=== PATIENT | male | born 1965 | race Caucasian/White ===

== ENCOUNTER 2018-11-28 09:49 | Day surgery (SDC) | payer BC ==
[2018-11-26 14:11] VITALS: BMI 36.2
--- NOTE | 2018-11-28 08:47 | P.GSHP ---
History of Present Illness H&P Date: 11/28/18 CHIEF COMPLAINT: Colon screen HISTORY OF PRESENT ILLNESS: The patient is a 53-year-old male who presents for colon screen. Lower endoscopy was offered for further evaluation and management. PAST MEDICAL HISTORY: Please see list. PAST SURGICAL HISTORY: Please see list. MEDICATIONS: Please see list. ALLERGIES: Please see list. SOCIAL HISTORY: No illicit drug use FAMILY HISTORY: No reports of Crohn disease or ulcerative colitis. REVIEW OF ORGAN SYSTEMS: CONSTITUTIONAL: No reports of fevers or chills. PHYSICAL EXAM: VITAL SIGNS: Stable GENERAL: Well-developed pleasant in no acute distress. HEENT: No scleral icterus. Extraocular movements grossly intact. Moist buccal mucosa. NECK: Supple without lymphadenopathy. CHEST: Unlabored respirations. Equal bilateral excursions. CARDIOVASCULAR: Regular rate and rhythm. Distal 2+ pulses. ABDOMEN: Soft, nontender, nondistended. MUSCULOSKELETAL: No clubbing, cyanosis, or edema. ASSESSMENT: 1. Colon screen. PLAN: 1. 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 Last Myocardial Infarction Date:: 04/06/16 History of Any Multi-Drug Resistant Organisms: None Reported Past Surgical History: Heart Catheterization, Heart Catheterization With Stent, Tonsillectomy Additional Past Surgical History / Comment(s): TWO STENTS Past Anesthesia/Blood Transfusion Reactions: No Reported Reaction Date of Last Stent Placement:: 04/06/16 Past Psychological History: Anxiety Additional Psychological History / Comment(s): PTS STATES " NOT REALLY ANGRY- JUST LOUD" Smoking Status: Former smoker Past Alcohol Use History: Occasional Additional Past Alcohol Use History / Comment(s): QUIT 04/06/16 WAS 2 PPD FOR 35 YRS . CURRENTLY VAPES* Past Drug Use History: Marijuana Additional Drug Use History / Comment(s): CURRENT MARIJUANA USE - Past Family History Father Family Medical History: Coronary Artery Disease (CAD) Additional Family Medical History / Comment(s): CABG- TRIPLE WITH VALVE REPLACEMENT 1974 FOLLOWING YEAR FROM HEART PROBLEMS Mother Family Medical History: Osteoarthritis (OA) Additional Family Medical History / Comment(s): chronic pain, cystic breast tissue removed Brother(s) Family Medical History: Hyperlipidemia Sister(s) Family Medical History: Hyperlipidemia Daughter(s) Family Medical History: No Reported History Son(s) Family Medical History: No Reported History Medications and Allergies Home Medications Medication Instructions Recorded Confirmed Type Multivitamins, Thera [Multivitamin 1 tab PO DAILY 04/06/16 11/26/18 History (formulary)] busPIRone HCl [Buspar] 20 mg PO BID 04/06/16 11/26/18 History Aspirin 325 mg PO DAILY tab 04/09/16 11/26/18 Rx Nitroglycerin Sl Tabs [Nitrostat] 0.4 mg SUBLINGUAL Q5M PRN #30 tab 04/09/16 11/26/18 Rx Acetaminophen [Tylenol] 1,500 mg PO BID PRN 11/26/18 11/26/18 History Losartan Potassium [Cozaar] 100 mg PO DAILY 11/26/18 11/26/18 History Metoprolol Tartrate [Lopressor] 50 mg PO BID 11/26/18 11/26/18 History Naproxen Sodium [Aleve] 440 mg PO BID 11/26/18 11/26/18 History Omeprazole [PriLOSEC] 40 mg PO DAILY 11/26/18 11/26/18 History Ranitidine HCl 150 mg PO DAILY 11/26/18 11/26/18 History Simvastatin [Zocor] 40 mg PO HS 11/26/18 11/26/18 History Vitamin B Complex 1 each PO DAILY 11/26/18 11/26/18 History amLODIPine BESYLATE [Norvasc] 5 mg PO HS PRN 11/26/18 11/26/18 History Allergies Allergy/AdvReac Type Severity Reaction Status Date / Time No Known Allergies Allergy Verified 11/26/18 13:34
[~2018-11-28 09:49] MED LIST: HYDROmorphone 0.5 MG/0.5 ML SYRINGE IVP PRN; LACTATED RINGERS 1,000 ML IV SCH; LIDOCAINE 1% 20 ML VIAL (10MG/ML) FOR IV START INTRADERMA PRN; MIDAZOLAM 2 MG/2 ML VIAL IV PRN
[2018-11-28 10:41] VITALS: RESP 18; TEMP 98.7
[2018-11-28] MEDS ORDERED: PROPOFOL 10 MG/ML 20 ML VIAL IV ONE (11:28)
--- NOTE | 2018-11-28 12:21 | P.PCN ---
Date of Procedure: 11/28/18 Description of Procedure: PREOPERATIVE DIAGNOSIS: Colonoscopy screening, first POSTOPERATIVE DIAGNOSIS: Colonoscopy screening, first Multiple tubular adenomas throughout the colon. External hemorrhoids, grade 2 Scattered sigmoid diverticulosis OPERATION: Colonoscopy to the ileocecal valve and appendiceal orifice. Colonoscopy with multiple cold forceps biopsies. SURGEON: Magdalena Rogers MD. ANESTHESIA: MAC. INDICATIONS: The patient is a 53-year-old male who presents for his first colonoscopy s creening. Benefits and risks were described and informed consent was obtained. DESCRIPTION OF PROCEDURE: The patient had undergone Gatorade, MiraLAX and Dulcolax prep. He had been brought into the operating room and laid in the left lateral decubitus position. After adequate intravenous sedation, the rectum was examined with 2% lidocaine jelly. External hemorrhoids were encountered. The rectal tone was within normal limits. The prostate was soft without nodularity. No lesions were palpated in the rectal vault. An Olympus colonoscope was advanced until the ileocecal valve and appendiceal orifice were clearly viewed. The prep was fair with visualization of the mucosal folds. Scattered diverticulosis was encountered. Multiple colonic polyps were found and cold forcep biopsy. No evidence of focal colitis was found. Retroflexion of the scope demonstrated grade 1 internal hemorrhoids without active bleeding or inflammation. The colon was desufflated. The patient had tolerated the procedure well. Withdrawal time was over 6 minutes. FINDINGS: Aronchick preparation quality scale 2 (1-5) Internal hemorrhoids, grade 1 External hemorrhoids, grade 2. No arteriovenous malformations. Scattered diverticulosis Removal of 6 polyps: - Cold forceps biopsy at 35 cm from the anal verge, 4 mm polyp, descending colon - Cold forceps biopsy at 20 cm from the anal verge x 5, 3 to 5 mm polyps, sigmoid colon No focal colitis. RECOMMENDATIONS: Given severity of tubular adenomas, recommend repeat colonoscopy 3 years, 2021. Plan - Discharge Summary Discharge Rx Participant: No New Discharge Prescriptions: No Action busPIRone HCl [Buspar] 20 mg PO BID Multivitamins, Thera [Multivitamin (formulary)] 1 tab PO DAILY Aspirin 325 mg PO DAILY tab Nitroglycerin Sl Tabs [Nitrostat] 0.4 mg SUBLINGUAL Q5M PRN #30 tab PRN Reason: Chest Pain Losartan Potassium [Cozaar] 100 mg PO DAILY Metoprolol Tartrate [Lopressor] 50 mg PO BID Omeprazole [PriLOSEC] 40 mg PO DAILY Naproxen Sodium [Aleve] 440 mg PO BID Simvastatin [Zocor] 40 mg PO HS Ranitidine HCl 150 mg PO DAILY amLODIPine BESYLATE [Norvasc] 5 mg PO HS PRN PRN Reason: Hypertension Vitamin B Complex 1 each PO DAILY Acetaminophen [Tylenol] 1,500 mg PO BID PRN PRN Reason: Pain Discharge Medication List Multivitamins, Thera [Multivitamin (formulary)] 1 tab PO DAILY 04/06/16 [History] busPIRone HCl [Buspar] 20 mg PO BID 04/06/16 [History] Aspirin 325 mg PO DAILY tab 04/09/16 [Rx] Nitroglycerin Sl Tabs [Nitrostat] 0.4 mg SUBLINGUAL Q5M PRN #30 tab 04/09/16 [Rx] Acetaminophen [Tylenol] 1,500 mg PO BID PRN 11/26/18 [History] Losartan Potassium [Cozaar] 100 mg PO DAILY 11/26/18 [History] Metoprolol Tartrate [Lopressor] 50 mg PO BID 11/26/18 [History] Naproxen Sodium [Aleve] 440 mg PO BID 11/26/18 [History] Omeprazole [PriLOSEC] 40 mg PO DAILY 11/26/18 [History] Ranitidine HCl 150 mg PO DAILY 11/26/18 [History] Simvastatin [Zocor] 40 mg PO HS 11/26/18 [History] Vitamin B Complex 1 each PO DAILY 11/26/18 [History] amLODIPine BESYLATE [Norvasc] 5 mg PO HS PRN 11/26/18 [History] Follow up Appointment(s)/Referral(s): Magdalena Rogers MD [STAFF PHYSICIAN] - As Needed Patient Instructions/Handouts: Colorectal Polyps (DC), Diverticulosis Diet (GEN) Activity/Diet/Wound Care/Special Instructions: Repeat colonoscopy in 5 years, 2023 Discharge Disposition: HOME SELF-CARE
[2018-11-28 12:39] VITALS: BP 114/80; PULSE 64
== END 2018-11-28 12:43 | disposition home or self-care (01) ==
LOC: ORWHC2ENDO 09:49
PROVIDERS: ATTEND Surgery Plastic and Reconstructive Surgery
DX: Z12.11 Encounter for screening for malignant neoplasm of colon (principal); K63.5 Polyp of colon; K64.4 Residual hemorrhoidal skin tags; K64.0 First degree hemorrhoids; K57.30 Diverticulosis of large intestine without perforation or abscess without bleeding; I25.10 Atherosclerotic heart disease of native coronary artery without angina pectoris; K21.9 Gastro-esophageal reflux disease without esophagitis; E78.5 Hyperlipidemia, unspecified; I10 Essential (primary) hypertension; I25.2 Old myocardial infarction; M19.90 Unspecified osteoarthritis, unspecified site; E66.01 Morbid (severe) obesity due to excess calories; Z95.5 Presence of coronary angioplasty implant and graft; F41.9 Anxiety disorder, unspecified; Z87.891 Personal history of nicotine dependence; Z82.49 Family history of ischemic heart disease and other diseases of the circulatory system; Z79.899 Other long term (current) drug therapy; Z79.1 Long term (current) use of non-steroidal anti-inflammatories (NSAID); Z79.82 Long term (current) use of aspirin; Z79.891 Long term (current) use of opiate analgesic; Z68.36 Body mass index [BMI] 36.0-36.9, adult
CPT/HCPCS: 88305; 45380; J2704

== ENCOUNTER 2022-10-13 07:20 | Day surgery (SDC) | payer BC, OTHER ==
[~2022-10-13 07:20] MED LIST changes: +ALPRAZolam 0.25 MG TAB PO PRN; +ALPRAZolam 0.5 MG TAB PO PRN; +ASPIRIN 325 MG TAB PO STA; +ATORVASTATIN 80 MG TAB PO STA; +HEPARIN SODIUM,PORCINE 10,000 UNIT in SODIUM CHLORIDE 0.9% 1,000 ML IRRIGATION PRN; +HEPARIN SODIUM,PORCINE 2,500 UNIT in SODIUM CHLORIDE 0.9% 250 ML IRRIGATION PRN; -HYDROmorphone 0.5 MG/0.5 ML SYRINGE IVP PRN; -LACTATED RINGERS 1,000 ML IV SCH; -LIDOCAINE 1% 20 ML VIAL (10MG/ML) FOR IV START INTRADERMA PRN; -MIDAZOLAM 2 MG/2 ML VIAL IV PRN; +NITROGLYCERIN SL TABS 0.4 MG TAB SUBLINGUAL PRN; +SODIUM CHLORIDE 0.9% 1,000 ML in EMPTY BAG 1 BAG IV SCH
[2022-10-13] MEDS ORDERED: SODIUM CHLORIDE 0.9% 1,000 ML IV ONE (07:30)
[2022-10-13 07:40] VITALS: RESP 16; TEMP 97.9
[2022-10-13 07:43] LABS: Basophils # (A) 0.1 k/uL (0-0.2); Basophils % (A) 1 %; Eosinophils # (A) 0.4 k/uL (0-0.7); Eosinophils % (A) 5 %; HCT 45.7 % (39.0-53.0); HGB 15.2 gm/dL (13.0-17.5); Lymphocytes % (A) 34 %; MCH 30.9 pg (25.0-35.0); MCHC 33.4 g/dL (31.0-37.0); MCV 92.7 fL (80.0-100.0); Monocytes # (A) 0.5 k/uL (0-1.0); Monocytes % (A) 6 %; Neutrophils # (A) 4.6 k/uL (1.3-7.7); Neutrophils % (A) 52 %; Platelet Count 280 k/uL (150-450); RBC 4.93 m/uL (4.30-5.90); RDW 12.9 % (11.5-15.5); WBC 8.8 k/uL (3.8-10.6)
[2022-10-13 07:55] LABS: African American GFR (CKD) >90 (>60 ml/min/1.73 sqM); Anion Gap 11 mmol/L; Blood Urea Nitrogen 21 mg/dL (9-20); Calcium 9.2 mg/dL (8.4-10.2); Carbon Dioxide 24 mmol/L (22-30); Chloride 107 mmol/L (98-107); Glucose 104 mg/dL (74-99); Non-African American GFR(CKD) 86 (>60 ml/min/1.73 sqM); Potassium 4.3 mmol/L (3.5-5.1); Sodium 142 mmol/L (137-145)
[2022-10-13] MEDS ORDERED: VERAPAMIL 2.5 MG/ML 2 ML AMP ONE (08:53)
[2022-10-13] MEDS ORDERED: fentaNYL (PF) 50 MCG/ML 2 ML AMP ONE (09:04)
[2022-10-13] MEDS ORDERED: HEPARIN SODIUM 1,000 UN/ML (10ML VL) ONE (09:05)
[2022-10-13] MEDS ORDERED: MIDAZOLAM 2 MG/2 ML VIAL IVP ONE (09:35)
[2022-10-13] MEDS ORDERED: fentaNYL (PF) 50 MCG/ML 2 ML AMP IVP ONE (09:35)
[2022-10-13] MEDS ORDERED: LIDOCAINE 1% INJ 10MG/ML (5 ML VIAL-PF) SQ ONE (09:37)
[2022-10-13] MEDS ORDERED: VERAPAMIL SYRINGE (5 MG/10 ML) INTRAARTER ONE (09:38)
[2022-10-13] MEDS ORDERED: IOPAMIDOL-370 125ML BTL INJ ONE ×3 (09:58→10:06)
--- NOTE | 2022-10-13 10:19 | P.CARDCATH ---
Description of Procedure: PROCEDURES PERFORMED: Left heart catheterization, bilateral coronary angiography, iFR LAD, iFR ramus, iFR OM1 INDICATION: Chest pain concerning for unstable angina, abnormal stress test with anterior ischemia CONSENT:I have discussed the risks, benefits and alternative therapies for the above-mentioned procedure and for both sedation/analgesia as well as necessary blood product administration, if indicated, as they pertain to this patient. The patient has indicated understanding and acceptance of the risks and procedures discussed. PROCEDURE: After the risks, benefits and alternatives of the above mentioned procedure explained in detail with the patient, informed consent was obtained. Patient was taken to the catheterization lab and prepped and draped in usual fashion. 1% lidocaine was used to anesthetize the right radial artery. A 6- Jordanian sheath was placed in the right radial artery using modified Seldinger technique. Left coronary angiography was performed with a 5-Jordanian JL 4.0 catheter and right coronary angiography was performed with a 5-Jordanian JR5 catheter in various views. A 5-Jordanian FR5 catheter was inserted into the left ventricle and pressure measurements were obtained. Decision was made to perform iFR of the LAD, ramus and OM2. Heparin was given. A 6-Jordanian CLS 4.0 guide was used to engage the left main. A 0.014 pressure wire was advanced into the left main and normalized. The wire was then advanced 1 cm distal to the LAD stents, the mid ramus and into the mid OM 1 with iFR performed and normal for all 3. iFR LAD 0.93, ramus 0.99, OM1 1.02. The catheter was removed. The right radial sheath was removed and a TR band was placed with hemostasis achieved. The patient tolerated the procedure well. Patient was transported back to the post catheterization holding area in stable condition. Conscious Sedation: Patient was monitored under the direct supervision of vision of myself for conscious sedation using Versed and fentanyl for a total duration of 31 minutes HEMODYNAMICS: Ao: 132/78 LV: 131/8, LVEDP 19 SELECTIVE CORONARY ARTERIOGRAPHY: LEFT MAIN: The left main is a large caliber vessel which trifurcates into the LAD, ramus and circumflex. There is no significant stenosis. LEFT ANTERIOR DESCENDING CORONARY ARTERY: LAD is a large caliber vessel which wraps around to the apex. There is diffuse mild proximal disease including a 40-50% proximal LAD stenosis. There is a mid LAD stent which is patent with mild luminal irregularities elsewhere. RAMUSL INTERMEDIUS: The ramus is a small to moderate caliber vessel with proximal 60-70% stenosis. Otherwise there are mild luminal irregularities LEFT CIRCUMFLEX CORONARY ARTERY: Left circumflex is a moderate to large caliber vessel with mild luminal irregularities. There is a moderate caliber OM1 with 50-60% proximal stenosis and otherwsise mild luminal irregularities. RIGHT CORONARY ARTERY: The right coronary artery is a moderate caliber vessel which gives off a PDA and PLV branch and is the dominant vessel. There is diffuse 30-40% proximal to mid RCA stenosis FINAL IMPRESSION: 1. Mild to moderate CAD as described above including proximal LAD 40-50% stenosis, ramus 60s 70% stenosis, OM1 50-60% stenosis, RCA 30-40% stenosis 2. iFR normal of ramus, LAD, OM1 3. Mildly elevated left sided filling pressures PLAN: 1. Aggressive risk factor modification per most recent ACC/AHA guidelines. 2. Continue with medical therapy given normal iFR.
[2022-10-13 13:14] VITALS: PULSE 68
[2022-10-13 14:26] VITALS: BP 117/73
== END 2022-10-13 14:02 | disposition home or self-care (01) ==
LOC: CATHCVL 07:20
PROVIDERS: ATTEND Internal Medicine
DX: I25.10 Atherosclerotic heart disease of native coronary artery without angina pectoris (principal); I25.9 Chronic ischemic heart disease, unspecified; Z95.5 Presence of coronary angioplasty implant and graft; I10 Essential (primary) hypertension; E78.5 Hyperlipidemia, unspecified; J44.9 Chronic obstructive pulmonary disease, unspecified; Z86.16 Personal history of COVID-19; I25.2 Old myocardial infarction; Z86.79 Personal history of other diseases of the circulatory system; Z79.82 Long term (current) use of aspirin; Z79.51 Long term (current) use of inhaled steroids; Z87.891 Personal history of nicotine dependence; Z79.899 Other long term (current) drug therapy
CPT/HCPCS: 93458; 93799; 99152; 99153; 80048; 85025; C1887; C1769 ×2; C1894; J2250; J2001; J3010; J1644; Q9967

== ENCOUNTER 2023-12-12 23:27 | Observation (INO) | payer MEDICARE, OTHER ==
--- NOTE | 2023-12-12 23:38 | ED ---
Neuro HPI - General Stated Complaint: Numbness Time Seen by Provider: 12/12/23 23:38 - History of Present Illness Is the patient presenting with stroke symptoms?: Yes Initial Comments: 58-year-old male with past medical history of coronary artery disease, hypertension, hyperlipidemia who presents emergency department with possible strokelike symptoms. Daughter is at bedside and provides history. States that her and her father were drinking some beers. She noted that the left side of his face started drooping. This was around 20:50. Patient also had paralysis of the upper and lower extremity. He was having difficulty getting his words out. EMS was immediately called. Upon their arrival patient had resolution of his symptoms. He arrives to the hospital back to his baseline. He does admit to drinking some alcohol and smoking marijuana tonight. He denies history of stroke. Denies any head injuries. No visual changes. No weakness in his extremities at this time. No other alleviating, precipitating or modifying factors - Related Data Home Medications: Home Medications Medication Instructions Recorded Confirmed Acetaminophen [Tylenol] 1,500 mg PO BID PRN 11/26/18 10/11/22 Losartan Potassium [Cozaar] 100 mg PO DAILY 11/26/18 10/11/22 Metoprolol Tartrate [Lopressor] 50 mg PO BID 11/26/18 10/11/22 Naproxen Sodium [Aleve] 440 mg PO BID 11/26/18 10/11/22 Omeprazole [PriLOSEC] 80 mg PO DAILY 11/26/18 10/11/22 Simvastatin [Zocor] 40 mg PO HS 11/26/18 10/11/22 Ascorbic Acid [Vitamin C] 500 mg PO DAILY 10/11/22 10/11/22 Cholecalciferol [Vitamin D3 (25 1 tab PO DAILY 10/11/22 10/11/22 Mcg = 1000 Iu)] Citalopram Hydrobromide 40 mg PO DAILY 10/11/22 10/11/22 [Citalopram HBr] Furosemide [Lasix] 40 mg PO DAILY 10/11/22 10/11/22 Meloxicam [Mobic] 15 mg PO DAILY PRN 10/11/22 10/11/22 Montelukast [Singulair] 10 mg PO HS PRN 10/11/22 10/11/22 Zinc Gluconate [Zinc] 50 mg PO DAILY 10/11/22 10/11/22 Previous Rx's Medication Instructions Recorded Aspirin 325 mg PO DAILY tab 04/09/16 Nitroglycerin Sl Tabs [Nitrostat] 0.4 mg SUBLINGUAL Q5M PRN #30 tab 04/09/16 Allergies/Adverse Reactions: Allergies Allergy/AdvReac Type Severity Reaction Status Date / Time No Known Allergies Allergy Verified 10/13/22 07:33 Review of Systems ROS Statement: Those systems with pertinent positive or pertinent negative responses have been documented in the HPI. ROS Other: All systems not noted in ROS Statement are negative. General Exam General appearance: alert, in no apparent distress, appears intoxicated Head exam: Present: atraumatic, normocephalic, normal inspection Eye exam: Present: normal appearance, PERRL, EOMI. Absent: scleral icterus, conjunctival injection, periorbital swelling ENT exam: Present: normal exam, mucous membranes moist Neck exam: Present: normal inspection. Absent: tenderness, meningismus, lymphadenopathy Respiratory exam: Present: normal lung sounds bilaterally. Absent: respiratory distress, wheezes, rales, rhonchi, stridor Cardiovascular Exam: Present: regular rate, normal rhythm, normal heart sounds. Absent: systolic murmur, diastolic murmur, rubs, gallop, clicks GI/Abdominal exam: Present: soft, normal bowel sounds. Absent: distended, tenderness, guarding, rebound, rigid Extremities exam: Present: normal inspection, full ROM, normal capillary refill. Absent: tenderness, pedal edema, joint swelling, calf tenderness Back exam: Present: normal inspection Neurological exam: Present: alert, oriented X3, CN II-XII intact Psychiatric exam: Present: normal affect, normal mood Skin exam: Present: warm, dry, intact, normal color. Absent: rash Stroke MDM - Lab Data Result diagrams: 12/13/23 00:04 12/13/23 00:04 Lab Results 12/13/23 12/13/23 12/13/23 Range/Units 00:04 00:04 00:04 WBC 12.3 H (3.8-10.6) k/uL RBC 4.69 (4.30-5.90) m/uL Hgb 14.5 (13.0-17.5) gm/dL Hct 44.0 (39.0-53.0) % MCV 94.0 (80.0-100.0) fL MCH 31.0 (25.0-35.0) pg MCHC 33.0 (31.0-37.0) g/dL RDW 13.5 (11.5-15.5) % Plt Count 233 (150-450) k/uL MPV 8.3 Neutrophils % 51 % Lymphocytes % 34 % Monocytes % 8 % Eosinophils % 4 % Basophils % 1 % Neutrophils # 6.3 (1.3-7.7) k/uL Lymphocytes # 4.2 (1.0-4.8) k/uL Monocytes # 1.0 (0-1.0) k/uL Eosinophils # 0.5 (0-0.7) k/uL Basophils # 0.1 (0-0.2) k/uL PT 9.6 L (10.0-12.5) sec INR 0.8 (<1.2) APTT 20.8 L (22.0-30.0) sec Sodium 136 L (137-145) mmol/L Potassium 3.8 (3.5-5.1) mmol/L Chloride 107 (98-107) mmol/L Carbon Dioxide 18 L (22-30) mmol/L Anion Gap 11 mmol/L BUN 15 (9-20) mg/dL Creatinine 0.89 (0.66-1.25) mg/dL Est GFR (CKD-EPI)AfAm >90 (>60 ml/min/1.73 sqM) Est GFR (CKD-EPI)NonAf >90 (>60 ml/min/1.73 sqM) Glucose 113 H (74-99) mg/dL POC Glucose (mg/dL) (70-110) mg/dL POC Glu Power Hammer Operator ID Calcium 8.4 (8.4-10.2) mg/dL Total Bilirubin 0.3 (0.2-1.3) mg/dL AST 26 (17-59) U/L ALT 47 (4-49) U/L Alkaline Phosphatase 100 (38-126) U/L Creatine Kinase 55 (55-170) U/L Troponin I (0.000-0.034) ng/mL Total Protein 6.2 L (6.3-8.2) g/dL Albumin 3.3 L (3.5-5.0) g/dL Serum Alcohol 135 mg/dL 05/15/24 05/15/24 Range/Units 00:04 00:05 WBC (3.8-10.6) k/uL RBC (4.30-5.90) m/uL Hgb (13.0-17.5) gm/dL Hct (39.0-53.0) % MCV (80.0-100.0) fL MCH (25.0-35.0) pg MCHC (31.0-37.0) g/dL RDW (11.5-15.5) % Plt Count (150-450) k/uL MPV Neutrophils % % Lymphocytes % % Monocytes % % Eosinophils % % Basophils % % Neutrophils # (1.3-7.7) k/uL Lymphocytes # (1.0-4.8) k/uL Monocytes # (0-1.0) k/uL Eosinophils # (0-0.7) k/uL Basophils # (0-0.2) k/uL PT (10.0-12.5) sec INR (<1.2) APTT (22.0-30.0) sec Sodium (137-145) mmol/L Potassium (3.5-5.1) mmol/L Chloride (98-107) mmol/L Carbon Dioxide (22-30) mmol/L Anion Gap mmol/L BUN (9-20) mg/dL Creatinine (0.66-1.25) mg/dL Est GFR (CKD-EPI)AfAm (>60 ml/min/1.73 sqM) Est GFR (CKD-EPI)NonAf (>60 ml/min/1.73 sqM) Glucose (74-99) mg/dL POC Glucose (mg/dL) 120 H (70-110) mg/dL POC Glu Power Hammer Operator ID Emilia Sanford Calcium (8.4-10.2) mg/dL Total Bilirubin (0.2-1.3) mg/dL AST (17-59) U/L ALT (4-49) U/L Alkaline Phosphatase (38-126) U/L Creatine Kinase (55-170) U/L Troponin I <0.012 (0.000-0.034) ng/mL Total Protein (6.3-8.2) g/dL Albumin (3.5-5.0) g/dL Serum Alcohol mg/dL - Medical Decision Making Was pt. sent in by a medical professional or institution (, PA, MISSION ANALYST, urgent care, hospital, or correction...) When possible be specific @ -No Did you speak to anyone other than the patient for history (EMS, parent, family, police, friend...)? What history was obtained from this source @ -I spoke with EMS in regards to onset of symptoms. I also spoke with the daughter and she was the one that witnessed the symptoms at home Did you review nursing and triage notes (agree or disagree)? Why? @ -I reviewed and agree with nursing and triage notes Were old charts reviewed (outside hosp., previous admission, EMS record, old EKG, old radiological studies, urgent care reports/EKG's, correction records)? Report findings @ -No old charts were reviewed Differential Diagnosis (chest pain, altered mental status, abdominal pain women, abdominal pain men, vaginal bleeding, weakness, fever, dyspnea, syncope, headache, dizziness, GI bleed, back pain, seizure, CVA, palpatations, mental health, musculoskeletal)? @ -Differential CVA Ischemic stroke, hemorrhagic stroke, brain tumor, atypical migraine, Wernicke's encephalopathy, seizure, multiple sclerosis, meningitis, encephalitis, hypoglycemia, Guillain-Parikh, electrolytes disturbance, myasthenia gravis.... This is not meant to be an all-inclusive list EKG interpreted by me (3pts min.). @ -Yes and demonstrates sinus rhythm with a rate of 68. IN interval 195. QRS 117. QTc of 454. No acute ST segment elevations or depressions X-rays interpreted by me (1pt min.). @ -Chest x-ray was reviewed by myself and demonstrates emphysematous changes CT interpreted by me (1pt min.). @ -CT as interpreted by myself and negative for acute process U/S interpreted by me (1pt. min.). @ -None done What testing was considered but not performed or refused? (CT, X-rays, U/S, labs)? Why? @ -None What meds were considered but not given or refused? Why? @ -TNKase administration was discussed with the patient and his family at bedside. Patient is adamant that he does not want this medication. Patient is intoxicated and therefore I did discuss the medication with his and daughter. Due to the risks of bleeding and the family does not wish to proceed with this medication Did you discuss the management of the patient with other professionals (professionals i.e. , PA, MISSION ANALYST, lab, RT, psych nurse, healthcare social worker, autocad draftsman, teacher, chairman president and chief executive officer, nurse outreach case manager)? Give summary @ -I spoke with Dr. Nascimento who states that the patient could be a TNKase candidate should his CT come back as negative Was smoking cessation discussed for >3mins.? @ -No Was critical care preformed (if so, how long)? @ -Yes, 35 minutes for code stroke activation Were there social determinants of health that impacted care today? How? (Homelessness, low income, unemployed, alcoholism, drug addiction, transportation, low edu. Level, literacy, decrease access to med. care, fpc, rehab)? @ -No Was there de-escalation of care discussed even if they declined (Discuss DNR or withdrawal of care, Hospice)? DNR status @ -No What co-morbidities impacted this encounter? (DM, HTN, Smoking, COPD, CAD, Cancer, CVA, ARF, Chemo, Hep., AIDS, mental health diagnosis, sleep apnea, morb id obesity)? @ -Coronary artery disease, hypertension, hyperlipidemia Was patient admitted / discharged? Hospital course, mention meds given and route, prescriptions, significant lab abnormalities, going to OR and other pertinent info. @ -Upon arrival patient was seen and evaluated in room 15. Thorough history and physical exam was performed. He is placed on continuous pulse ox and cardiac monitoring. EMS states that the patient has had complete resolution of his symptoms. Upon my original exam the patient does have complete resolution of his symptoms however within a few minutes he does note some numbness to his left lower extremity with weakness. NIH is assessed and is 2 for left lower extremity weakness and numbness. Code thrombolytic is activated. Patient does go for CT. I did discuss the CT results with Dr. Nascimento. He states that the patient could be a TNKase candidate. CT does return and is negative. I did spend an extensive amount of time discussing the treatment options with the family. I also discussed the risks. Patient does not want TNKase. I did discuss the care with the patient's , daughter and son as well as he is intoxicated. All parties agree that the risk is too great of administering the medications and therefore they do decline the medication. Patient does have complete resolution of his symptoms at that time. Patient denies any chest pain or difficulty breathing. At this time I did recommend admission for neurology consultation. Patient was given aspirin and Plavix under the direction of Dr. Nascimento. Patient is admitted to [facility] in stable condition. I did speak with [facility] for admission. Undiagnosed new problem with uncertain prognosis? @ -Yes Drug Therapy requiring intensive monitoring for toxicity (Heparin, Nitro, Insulin, Cardizem)? @ -No Were any procedures done? @ -No Diagnosis/symptom? @ -Acute transient left-sided weakness, suspected TIA, acute alcohol intoxication Acute, or Chronic, or Acute on Chronic? @ -Acute Uncomplicated (without systemic symptoms) or Complicated (systemic symptoms)? @ -Complicated Side effects of treatment? @ -No Exacerbation, Progression, or Severe Exacerbation? @ -No Poses a threat to life or bodily function? How? (Chest pain, USA, ID, pneumonia, PE, COPD, DKA, ARF, appy, cholecystitis, CVA, Diverticulitis, Homicidal, Suicidal, threat to staff... and all critical care pts) @ -Yes as patient presents with strokelike symptoms Past Medical History Past Medical History: Coronary Artery Disease (CAD), Chest Pain / Angina, GERD/Reflux, Hyperlipidemia, Hypertension, Myocardial Infarction (ID), Musculoskeletal Disorder, Osteoarthritis (OA), Vascular Disorder Additional Past Medical History / Comment(s): BACK PAIN-SOME COMPRESSED DISCS-RT LEG ACHES ALL THE TIME-HARD TO WALK FAR., BLOCKAGE IN LEG-SEES DR ALONSO., HX OF BLOOD IN STOOL, WAKES UP AT NIGHT WITH GERD. 1 month ago in [place] with chest pain elevated troponins as high as 45mg left [facility], had take nitro before he went. then a few days later woke with chest pain took 2 nitro and pain subsided. see dr [facility] uses home O2 at 4-5 L prn for shortness of breath. Last Myocardial Infarction Date:: 04/06/16 History of Any Multi-Drug Resistant Organisms: None Reported Past Surgical History: Heart Catheterization, Heart Catheterization With Stent, Tonsillectomy Additional Past Surgical History / Comment(s): TWO STENTS [facility] and [facility] in 2016 Past Anesthesia/Blood Transfusion Reactions: No Reported Reaction Date of Last Stent Placement:: 04/06/16 Smoking Status: Former smoker - Past Family History Father Family Medical History: Coronary Artery Disease (CAD) Additional Family Medical History / Comment(s): CABG- TRIPLE WITH VALVE REPLACEMENT 1975 FOLLOWING YEAR FROM HEART PROBLEMS Mother Family Medical History: Osteoarthritis (OA) Additional Family Medical History / Comment(s): chronic pain, cystic breast tissue removed Brother(s) Family Medical History: Hyperlipidemia Sister(s) Family Medical History: Hyperlipidemia Daughter(s) Family Medical History: No Reported History Son(s) Family Medical History: No Reported History Course Vital Signs 12/12/23 12/12/23 12/13/23 23:29 23:40 00:00 Temperature 97.5 F L 97.8 F Pulse Rate 70 74 68 Respiratory 18 15 21 Rate Blood Pressure 90/58 90/58 101/53 O2 Sat by Pulse 95 96 95 Oximetry 12/13/23 12/13/23 12/13/23 00:20 00:37 00:45 Temperature 97.7 F Pulse Rate 76 67 61 Respiratory 16 21 18 Rate Blood Pressure 99/61 98/48 90/57 O2 Sat by Pulse 93 L 93 L 93 L Oximetry 12/13/23 12/13/23 12/13/23 01:00 01:15 01:45 Temperature Pulse Rate 60 63 61 Respiratory 20 21 18 Rate Blood Pressure 100/62 97/55 100/63 O2 Sat by Pulse 94 L 93 L 96 Oximetry 12/13/23 12/13/23 12/13/23 02:00 02:14 02:30 Temperature 97.8 F Pulse Rate 59 L 63 65 Respiratory 22 18 17 Rate Blood Pressure 97/54 106/61 106/61 O2 Sat by Pulse 95 96 94 L Oximetry 12/13/23 12/13/23 12/13/23 02:45 03:00 03:35 Temperature 97.8 F Pulse Rate 71 56 L 60 Respiratory 21 21 17 Rate Blood Pressure 99/56 98/63 109/64 O2 Sat by Pulse 94 L 93 L 97 Oximetry Disposition Clinical Impression: Left-sided weakness, TIA (transient ischemic attack) Disposition: ADMITTED IP TO THIS [facility] Condition: Serious Is patient prescribed a controlled substance at d/c from ED?: No Time of Disposition: 00:31 Decision to Admit Reason: Admit from EC Decision Date: 12/13/23 Decision Time: 00:31
--- NOTE | 2023-12-12 23:57 | CT ---
EXAM: CT Head Without Intravenous Contrast CLINICAL HISTORY: CT Reason: Neuro deficit, acute, stroke suspected TECHNIQUE: Axial computed tomography images of the head/brain without intravenous contrast. CTDI is 48.8 mGy and DLP is 1164.4 mGy-cm. This CT exam was performed using one or more of the following dose reduction techniques: automated exposure control, adjustment of the mA and/or kV according to patient size, and/or use of iterative reconstruction technique. COMPARISON: No relevant prior studies available. FINDINGS: Brain: Unremarkable. No hemorrhage. No significant white matter disease. No edema. Ventricles: Unremarkable. No ventriculomegaly. Bones/joints: Unremarkable. No acute fracture. Soft tissues: Unremarkable. Sinuses: Mild mucosal thickening in the inferior aspect of the right maxillary sinus and within the right sphenoid sinus which demonstrates a gas fluid level suggesting sinusitis. The remaining paranasal sinuses are within normal limits. Mastoid air cells: Unremarkable as visualized. No mastoid effusion. IMPRESSION: 1. Mild mucosal thickening in the inferior aspect of the right maxillary sinus and within the right sphenoid sinus which demonstrates a gas fluid level suggesting sinusitis. The remaining paranasal sinuses are within normal limits. 2. Unremarkable appearance of the brain. No intracranial hemorrhage or infarct is identified.
[2023-12-13 00:07] LABS: Glucose,Whole Blood 120 mg/dL (70-110)
--- NOTE | 2023-12-13 00:16 | CT ---
EXAM: CT Angiography Head With Intravenous Contrast CLINICAL HISTORY: CT Reason: Neuro deficit, acute, stroke suspected TECHNIQUE: Axial computed tomographic angiography images of the head with intravenous contrast. CTDI is 27.2 mGy and DLP is 467.7 mGy-cm. This CT exam was performed using one or more of the following dose reduction techniques: automated exposure control, adjustment of the mA and/or kV according to patient size, and/or use of iterative reconstruction technique. MIP reconstructed images were created and reviewed. COMPARISON: No relevant prior studies available. FINDINGS: Right internal carotid artery: Calcified plaque in the distal right internal carotid artery with 20-30% stenosis. No aneurysm. Right anterior cerebral artery: Unremarkable. No occlusion or significant stenosis. No aneurysm. Right middle cerebral artery: Unremarkable. No occlusion or significant stenosis. No aneurysm. Right posterior cerebral artery: Unremarkable. No occlusion or significant stenosis. No aneurysm. Right vertebral artery: The distal right vertebral artery is small with most of the flow directed into the PICA. This is a normal variant. Left internal carotid artery: Calcified plaque in the distal left internal carotid artery with 20% stenosis. No aneurysm. Left anterior cerebral artery: Unremarkable. No occlusion or significant stenosis. No aneurysm. Left middle cerebral artery: Unremarkable. No occlusion or significant stenosis. No aneurysm. Left posterior cerebral artery: Unremarkable. No occlusion or significant stenosis. No aneurysm. Left vertebral artery: Unremarkable as visualized. Basilar artery: Unremarkable. No occlusion or significant stenosis. No aneurysm. Sinuses: Mucosal thickening involving the right sphenoid sinus suggesting sinusitis. IMPRESSION: No acute findings in the arteries of the head/brain. EXAM: CT Angiography Neck With Intravenous Contrast CLINICAL HISTORY: CT Reason: Neuro deficit, acute, stroke suspected TECHNIQUE: Routine carotid CT angiography protocol was performed with intravenous contrast. NASCET criteria using the distal ICAs for comparison were used for evaluation of stenoses. CTDI is 27.2 mGy and DLP is 467.7 mGy-cm. This CT exam was performed using one or more of the following dose reduction techniques: automated exposure control, adjustment of the mA and/or kV according to patient size, and/or use of iterative reconstruction technique. MIP reconstructed images were created and reviewed. COMPARISON: None. FINDINGS: VASCULATURE: Right common carotid artery: Calcified plaque distal right common carotid artery causing 20% stenosis. No dissection. Right internal carotid artery: Calcified plaque in the proximal right internal carotid artery causing 20% stenosis. No dissection. Right external carotid artery: Unremarkable. No occlusion. Right vertebral artery: The right vertebral artery is congenitally small but patent. No focal stenosis or dissection. Left common carotid artery: Unremarkable. No occlusion or significant stenosis. No dissection. Left internal carotid artery: Calcified plaque in the proximal left internal carotid artery causing less than 20% stenosis. No dissection. Left external carotid artery: Unremarkable. No occlusion. Left vertebral artery: Unremarkable. No occlusion or significant stenosis. No dissection. NECK: Bones/joints: Mild to moderate degenerative changes in the cervical spine. No acute fracture or subluxation is seen. Soft tissues: Unremarkable. Lung apices: Mild to moderate emphysematous changes in the upper lungs. CAROTID STENOSIS REFERENCE USING NASCET CRITERIA: % ICA stenosis = (1 - narrowest ICA diameter/diameter of distal cervical ICA) x 100. Mild - <50% stenosis. Moderate - 50-69% stenosis. Severe - 70-94% stenosis. Near occlusion - 95-99% stenosis. Occluded - 100% stenosis. IMPRESSION: No acute findings in the arteries of the neck.
[2023-12-13 00:20] LABS: Basophils # (A) 0.1 k/uL (0-0.2); Basophils % (A) 1 %; Eosinophils # (A) 0.5 k/uL (0-0.7); Eosinophils % (A) 4 %; HGB 14.5 gm/dL (13.0-17.5); Lymphocytes # (A) 4.2 k/uL (1.0-4.8); Lymphocytes % (A) 34 %; Mean Platelet Volume 8.3; Monocytes % (A) 8 %; Neutrophils # (A) 6.3 k/uL (1.3-7.7); Neutrophils % (A) 51 %; Platelet Count 233 k/uL (150-450); RBC 4.69 m/uL (4.30-5.90); RDW 13.5 % (11.5-15.5); WBC 12.3 k/uL (3.8-10.6)
[2023-12-13 00:36] LABS: INR 0.8 (<1.2); Partial Thromboplastin Time 20.8 sec (22.0-30.0); Prothrombin Time 9.6 sec (10.0-12.5)
--- NOTE | 2023-12-13 00:38 | XR ---
EXAM: XR Chest, 1 View CLINICAL HISTORY: XR Reason: altered mental status TECHNIQUE: Frontal view of the chest. COMPARISON: April 06, 2016 FINDINGS: Lungs: Prominent vascular and interstitial markings throughout both lungs suggesting emphysema and vascular congestion. Possible mild edema. Pleural space: Unremarkable. No pneumothorax. Heart: The cardiac silhouette is borderline enlarged, exaggerated by technique and body habitus. Mediastinum: Unremarkable. Normal mediastinal contour. Bones/joints: Unremarkable. No acute fracture. Upper abdomen: Unremarkable as visualized. No pneumoperitoneum is seen under the diaphragm. IMPRESSION: 1. Prominent vascular and interstitial markings throughout both lungs suggesting emphysema and vascular congestion. Possible mild edema. 2. The cardiac silhouette is borderline enlarged, exaggerated by technique and body habitus.
[2023-12-13] MEDS: T.ENECTEPLASE 5 MG/ML VIAL IVP STA (00:47)
[2023-12-13] MEDS: SODIUM CHLORIDE 0.9% 1,000 ML IV ONE ×2 (00:58→01:31)
[2023-12-13] MEDS: ASPIRIN 325 MG TAB PO STA (01:01)
[2023-12-13 01:04] LABS: Sodium 136 mmol/L (137-145)
[2023-12-13 01:06] LABS: ALT 47 U/L (4-49); AST 26 U/L (17-59); African American GFR (CKD) >90 (>60 ml/min/1.73 sqM); Albumin 3.3 g/dL (3.5-5.0); Alkaline Phosphatase 100 U/L (38-126); Anion Gap 11 mmol/L; Blood Urea Nitrogen 15 mg/dL (9-20); Calcium 8.4 mg/dL (8.4-10.2); Carbon Dioxide 18 mmol/L (22-30); Chloride 107 mmol/L (98-107); Creatine Kinase 55 U/L (55-170); Glucose 113 mg/dL (74-99); Non-African American GFR(CKD) >90 (>60 ml/min/1.73 sqM); Potassium 3.8 mmol/L (3.5-5.1); Total Bilirubin 0.3 mg/dL (0.2-1.3); Total Protein 6.2 g/dL (6.3-8.2)
[2023-12-13 01:10] LABS: Alcohol 135 mg/dL
[2023-12-13] MEDS: CLOPIDOGREL 75 MG TAB PO STA (03:03)
[2023-12-13] MEDS: ACETAMINOPHEN TAB 500 MG TAB PO STA (03:33)
[2023-12-13] MEDS: SODIUM CHLORIDE 0.9% 1,000 ML IV SCH (03:35)
[2023-12-13] MEDS: ATORVASTATIN 40 MG TAB PO SCH (08:37)
[2023-12-13] MEDS ORDERED: NITROGLYCERIN SL TABS 0.4 MG TAB SUBLINGUAL PRN (09:18)
[2023-12-13] MEDS ORDERED: LORazepam 2 MG/ML INJ IV PRN (10:28)
--- NOTE | 2023-12-13 10:29 | P.HPIM ---
History of Present Illness This is a pleasant 58 years old male with past medical history of multiple medical problems, as below Patient presents because of 5 minutes long of neurological symptoms including left arm weakness, where he could not hold his phone as usual. He thinks also his left leg was weak to but he was sitting and not walking so he was not sure. His face also deviated to the right, he had slurred speech. All resolved within 5 minutes He has with mild to moderate headache. Tylenol did not help. Currently patient denies weakness or numbness in left arm or leg. No more slurred speech. No dizziness He denies chest pain abdominal pain vomiting diarrhea. No urinary complaints Patient he has chronic dyspnea. He was just recently treated by his PCP Dr. Payne order for his bronchitis with Keflex and prednisone taper. He finished his treatment about 3 days ago His correctional facility psychiatrist is Dr. Marrufo Patient states currently he is non-smoker, no alcohol, uses marijuana at times. He is hemodynamically stable, afebrile CBC is unremarkable except for mild leukocytosis 12.3, labs also unremarkable BMP, liver enzymes, INR, troponin Alcohol level was elevated 135 EKG showing sinus rhythm at [address]-T changes Chest x-ray showing emphysema with vascular congestion CT of the brain is negative showing sinusitis CT of the brain showing no abnormality of aneurysm or dissection or stenosis of the vascular region of the head and neck Patient currently on aspirin 325 mg Admitted with neurology team consult Review of Systems Review of systems CONSTITUTIONAL: No fever, no malaise, no fatigue. HEENT: No recent visual problems or hearing problems. Denied any sore throat. CARDIOVASCULAR: No orthopnea, PND, no palpitations, no syncope. PULMONARY: No shortness of breath, no cough, no hemoptysis. GASTROINTESTINAL: No diarrhea, no nausea, no vomiting, no abdominal pain. Normoactive bowel sounds. NEUROLOGICAL: No headaches, no weakness, no numbness. HEMATOLOGICAL: Denies any bleeding or petechiae. GENITOURINARY: Denies any burning micturition, frequency, or urgency. MUSCULOSKELETAL/RHEUMATOLOGICAL: Denies any joint pain, swelling, or any muscle pain. ENDOCRINE: Denies any polyuria or polydipsia. Past Medical History Past Medical History: Coronary Artery Disease (CAD), Chest Pain / Angina, GERD/Reflux, Hyperlipidemia, Hypertension, Myocardial Infarction ([place]), Musculoskeletal Disorder, Osteoarthritis (OA), Vascular Disorder Additional Past Medical History / Comment(s): BACK PAIN-SOME COMPRESSED DISCS-RT LEG ACHES ALL THE TIME-HARD TO WALK FAR., BLOCKAGE IN LEG-SEES DR ALONSO., HX OF BLOOD IN STOOL, WAKES UP AT NIGHT WITH GERD. 1 month ago in er with chest pain elevated troponins as high as 45mg left ama from [facility], had take nitro before he went. then a few days later woke with chest pain took 2 nitro and pain subsided. see dr [facility] uses home O2 at 4-5 L prn for shortness of breath. Last Myocardial Infarction Date:: 04/06/16 History of Any Multi-Drug Resistant Organisms: None Reported Past Surgical History: Heart Catheterization, Heart Catheterization With Stent, Tonsillectomy Additional Past Surgical History / Comment(s): TWO STENTS [facility] and lad in 2015 Past Anesthesia/Blood Transfusion Reactions: No Reported Reaction Date of Last Stent Placement:: 04/06/16 Smoking Status: Former smoker - Past Family History Father Family Medical History: Coronary Artery Disease (CAD) Additional Family Medical History / Comment(s): CABG- TRIPLE WITH VALVE REPLACEMENT 1975 FOLLOWING YEAR FROM HEART PROBLEMS Mother Family Medical History: Osteoarthritis (OA) Additional Family Medical History / Comment(s): chronic pain, cystic breast tissue removed Brother(s) Family Medical History: Hyperlipidemia Sister(s) Family Medical History: Hyperlipidemia Daughter(s) Family Medical History: No Reported History Son(s) Family Medical History: No Reported History Medications and Allergies Home Medications Medication Instructions Recorded Confirmed Type Aspirin 325 mg PO DAILY tab 04/09/16 12/13/23 Rx Nitroglycerin Sl Tabs [Nitrostat] 0.4 mg SUBLINGUAL Q5M PRN #30 tab 04/09/16 12/13/23 Rx Losartan Potassium [Cozaar] 100 mg PO DAILY 11/26/18 12/13/23 History Metoprolol Tartrate [Lopressor] 50 mg PO BID 11/26/18 12/13/23 History Omeprazole [PriLOSEC] 40 mg PO DAILY 11/26/18 12/13/23 History Ascorbic Acid [Vitamin C] 500 mg PO DAILY 10/11/22 12/13/23 History Cholecalciferol [Vitamin D3 (25 25 mcg PO DAILY 10/11/22 12/13/23 History Mcg = 1000 Iu)] Citalopram Hydrobromide 40 mg PO DAILY 10/11/22 12/13/23 History [Citalopram HBr] Furosemide [Lasix] 40 mg PO DAILY 10/11/22 12/13/23 History Meloxicam [Mobic] 15 mg PO DAILY PRN 10/11/22 12/13/23 History Zinc Gluconate [Zinc] 50 mg PO DAILY 10/11/22 12/13/23 History Acetaminophen [Tylenol 8 Hour] 1,300 mg PO DAILY 12/13/23 12/13/23 History Atorvastatin Calcium [Lipitor] 80 mg PO HS 12/13/23 12/13/23 History Cephalexin [Keflex] 500 mg PO Q6HR 12/13/23 12/13/23 History Ezetimibe [Zetia] 10 mg PO DAILY 12/13/23 12/13/23 History predniSONE See Taper PO DAILY 12/13/23 12/13/23 History Allergies Allergy/AdvReac Type Severity Reaction Status Date / Time No Known Allergies Allergy Verified 12/13/23 06:53 Physical Exam Vitals: Vital Signs Temp Pulse Pulse Resp BP BP Pulse Ox 12/13/23 08:40 91 L 12/13/23 08:00 97.6 F 55 L 18 136/68 96 12/13/23 06:00 56 L 17 106/56 92 L 12/13/23 05:00 66 11 L 102/67 93 L 12/13/23 04:00 57 L 19 109/64 93 L 12/13/23 03:35 97.8 F 60 17 109/64 97 12/13/23 03:00 56 L 21 98/63 93 L 12/13/23 02:45 71 21 99/56 94 L 12/13/23 02:30 65 17 106/61 94 L 12/13/23 02:14 97.8 F 63 18 106/61 96 12/13/23 02:00 59 L 22 97/54 95 12/13/23 01:45 61 18 100/63 96 12/13/23 01:15 63 21 97/55 93 L 12/13/23 01:00 60 20 100/62 94 L 12/13/23 00:45 61 18 90/57 93 L 12/13/23 00:37 97.7 F 67 21 98/48 93 L 12/13/23 00:20 76 16 99/61 93 L 12/13/23 00:00 97.8 F 68 21 101/53 95 12/12/23 23:40 74 15 90/58 96 12/12/23 23:29 97.5 F L 70 18 90/58 95 Intake and Output 12/12/23 12/13/23 12/13/23 22:59 06:59 14:59 Intake Total 240 Balance 240 Intake: Oral 240 Other: Voiding Method Toilet Urinal Weight 151.953 kg GENERAL: The patient is alert and oriented x3, not in any acute distress. Well developed, well nourished. HEENT: Pupils are round and equally reacting to light. EOMI. No scleral icterus. No conjunctival pallor. Normocephalic, atraumatic. No pharyngeal erythema. No thyromegaly. CARDIOVASCULAR: S1 and S2 present. No murmurs, rubs, or gallops. PULMONARY: Chest is clear to auscultation, no wheezing , no crackles. ABDOMEN: Soft, nontender, nondistended, normoactive bowel sounds. No palpable organomegaly. MUSCULOSKELETAL: No joint swelling or deformity. EXTREMITIES: No cyanosis, clubbing, or pedal edema. NEUROLOGICAL: Gross neurological examination did not reveal any focal deficits. SKIN: No rashes. no petechiae. Results CBC & Chem 7: 12/13/23 00:04 12/13/23 00:04 Labs: Abnormal Lab Results - Last 24 Hours (Table) 12/13/23 12/13/23 12/13/23 Range/Units 00:04 00:04 00:04 WBC 12.3 H (3.8-10.6) k/uL PT 9.6 L (10.0-12.5) sec APTT 20.8 L (22.0-30.0) sec Sodium 136 L (137-145) mmol/L Carbon Dioxide 18 L (22-30) mmol/L Glucose 113 H (74-99) mg/dL POC Glucose (mg/dL) (70-110) mg/dL Total Protein 6.2 L (6.3-8.2) g/dL Albumin 3.3 L (3.5-5.0) g/dL 12/13/23 Range/Units 00:05 WBC (3.8-10.6) k/uL PT (10.0-12.5) sec APTT (22.0-30.0) sec Sodium (137-145) mmol/L Carbon Dioxide (22-30) mmol/L Glucose (74-99) mg/dL POC Glucose (mg/dL) 120 H (70-110) mg/dL Total Protein (6.3-8.2) g/dL Albumin (3.5-5.0) g/dL Assessment and Plan Assessment: Transient left side hemiparesis, more in the arm than leg associated with left facial droop and right facial deviation, currently resolved concerning for TIA versus stroke. COPD with mild exacerbation. Coronary artery disease s/p stent Hypertension Hyperlipidemia History of GERD History of osteoarthritis Obesity with BMI of 41.9 Plan: Continue with aspirin. Plavix 1 is added in the emergency room Neurology consult Check hemoglobin A1c, B12 and TSH Start Symbicort and DuoNebs. No need for systemic steroids We recommend fluid restriction Labs and medication were reviewed.. Continue same treatment. Continue with symptomatic treatment. Resume home medication. Monitor labs and vitals. DVT and GI prophylaxis. Further recommendations as per clinical course of the patient DVT prophylaxis: Subcutaneous heparin GI Prophylaxis: Pepcid PT/OT: Pending Prognosis is guarded
[2023-12-13] MEDS ORDERED: LORazepam 1 MG TAB PO PRN ×3 (10:31)
[2023-12-13] MEDS ORDERED: LORazepam 0.5 MG TAB PO PRN (10:31)
[2023-12-13] MEDS ORDERED: CLOPIDOGREL 75 MG TAB PO SCH (12:35)
[2023-12-13] MEDS: THIAMINE 100 MG TAB PO SCH (12:42)
[2023-12-13] MEDS: EZETIMIBE 10 MG TAB PO SCH (12:43)
[2023-12-13] MEDS: CITALOPRAM HYDROBROMIDE 20 MG TAB PO SCH (12:43)
[2023-12-13] MEDS: PANTOPRAZOLE 40 MG/10 ML VIAL IVP SCH (12:43)
[2023-12-13] MEDS: LOSARTAN 50 MG TAB PO SCH (12:43)
[2023-12-13] MEDS: FUROSEMIDE 40 MG TAB PO SCH (12:43)
[2023-12-13] MEDS: CLOPIDOGREL 75 MG TAB PO SCH (13:12)
[2023-12-13 13:18] LABS: HCT 45.6 % (39.0-53.0); HGB 14.6 gm/dL (13.0-17.5); MCH 30.8 pg (25.0-35.0); MCV 96.1 fL (80.0-100.0); Mean Platelet Volume 8.2; Platelet Count 230 k/uL (150-450); RBC 4.74 m/uL (4.30-5.90); RDW 13.4 % (11.5-15.5); WBC 10.2 k/uL (3.8-10.6)
[2023-12-13 13:39] LABS: NT-Pro-B-Type Natriuretic Pept <20 pg/mL
--- NOTE | 2023-12-13 18:05 | P.CNNES ---
History of Present Illness Consult date: 12/13/23 Requesting physician: Zaynab Gaffney Reason for Consult: acute left sided weakness, suspected tia History of Present Illness: Patient is a 58-year-old right-handed male with history of hypertension, CAD, ex tobacco use, came to the hospital by ambulance yesterday at 11:27 PM for probable TIA. Patient's was present as well. He was apparently sitting at the home, drinking beer with his daughter, when at around 10:30 PM his speech became slurred, he felt his tongue was "fat" mumbled and could not speak. The only thing he could say clearly was "Sylvester I am stroking" at the same time his left face became completely droopy and his left arm was weak, could not use the cell phone. He does not know if his leg was weak, as he was sitting at that time. Left side of the face felt numb. Symptoms lasted for about only 5 minutes. There was no loss of consciousness, any seizure like activity. No previous history of strokes or TIA. Family called EMS. As per EMS flowsheet, when they arrived, patient was awake oriented x 4 with no current complaints. Patient and bystanders state patient had episode of left- sided paralysis, unable to speak lasting 3 to 4 minutes. Symptoms resolved prior to EMS arrival. Patient denies any vision change, hearing change, chest pain, nausea or difficulty breathing or trauma. Blood glucose was 150 mg/dL. Blood pressure 138/68, pulse 86, respirations 16 saturation 98% Blood test shows normal CBC, PT PTT, sodium 136 potassium, renal functions are normal. Hepatic panel is normal, troponin negative. TSH normal. Blood alcohol level was 135. CT head revealed mild mucosal thickening in the inferior aspect of the right maxillary sinus and within the right sphenoid sinus which demonstrates a gas/fluid level suggesting sinusitis. Other paranasal sinuses are within normal limits. Unremarkable appearance of the brain. No intracranial hemorrhage or infarct seen. I personally reviewed CT head, agree with the findings. Chest x-ray revealed prominent vascular interstitial markings throughout both lungs, suggesting emphysema and vascular congestion. Possible mild edema. The cardiac silhouette is borderline enlarged, exaggerated by technique and body habitus. EKG shows sinus rhythm. Stroke code was activated, as patient had 2 further episodes of similar symptoms in the ER with facial droop, each time lasting for about a few minutes. Patient and family elected not to give TNK because the symptoms were mild, and resolving. They wanted to hold TNK for any severe event. Patient has history of hypertension, denies diabetes. He has history of CAD, history of UT, with 2 stents to the RCA and LAD branches. He also has "aneurysm top of the heart". It is being watched. Patient has history of smoking 1-1/2 to 2 pack/day for 35 years, quit in 2016 after UT. He now vapes and also smokes marijuana. Patient does take aspirin 325 mg daily. Patient states that he drinks 5-6 beers and a couple shot of peppermint snaps maybe twice a week. He and his family does not believe that this is significant alcoholism. Family states that he can "go weeks without drinking". Review of Systems Constitutional: Denies chills, Denies fever Eyes: denies blurred vision, denies diplopia, denies pain, denies loss of vision Ears: deny: decreased hearing, ear discharge Ears, nose, mouth and throat: Reports headache (Sine last 3 days), Denies sore throat, Denies vertigo Cardiovascular: Reports lightheadedness (On standing up or a split second), Reports shortness of breath, Denies chest pain Respiratory: Reports cough, Reports excessive sputum (Recent URI) Gastrointestinal: Reports diarrhea, Denies abdominal pain, Denies nausea, Denies vomiting Genitourinary: Denies dysuria, Denies incontinence, Denies urinary hesitancy Musculoskeletal: Reports low back pain, Reports neck pain, Denies myalgias Integumentary: Denies pruritus, Denies rash Neurological: Reports as per HPI Psychiatric: Reports anxiety, Denies depression Hematologic/Lymphatic: Denies easy bleeding, Denies easy bruising Past Medical History Past Medical History: Coronary Artery Disease (CAD), Chest Pain / Angina, GERD/Reflux, Hyperlipidemia, Hypertension, Myocardial Infarction ([place]), Mu sculoskeletal Disorder, Osteoarthritis (OA), Vascular Disorder Additional Past Medical History / Comment(s): BACK PAIN-SOME COMPRESSED DISCS-RT LEG ACHES ALL THE TIME-HARD TO WALK FAR., BLOCKAGE IN LEG-SEES DR ALONSO., HX OF BLOOD IN STOOL, WAKES UP AT NIGHT WITH GERD. 1 month ago in er with chest pain elevated troponins as high as 45mg left ama from [facility], had take nitro before he went. then a few days later woke with chest pain took 2 nitro and pain subsided. see dr [facility] uses home O2 at 4-5 L prn for shortness of breath. Last Myocardial Infarction Date:: 04/06/16 History of Any Multi-Drug Resistant Organisms: None Reported Past Surgical History: Heart Catheterization, Heart Catheterization With Stent, Tonsillectomy Additional Past Surgical History / Comment(s): TWO STENTS [facility] and lad in 2016 Past Anesthesia/Blood Transfusion Reactions: No Reported Reaction Date of Last Stent Placement:: 04/06/16 Smoking Status: Former smoker - Past Family History Father Family Medical History: Coronary Artery Disease (CAD) Additional Family Medical History / Comment(s): CABG- TRIPLE WITH VALVE REPLACEMENT 1975 FOLLOWING YEAR FROM HEART PROBLEMS Mother Family Medical History: Osteoarthritis (OA) Additional Family Medical History / Comment(s): chronic pain, cystic breast tissue removed Brother(s) Family Medical History: Hyperlipidemia Sister(s) Family Medical History: Hyperlipidemia Daughter(s) Family Medical History: No Reported History Son(s) Family Medical History: No Reported History Medications and Allergies Home Medications Medication Instructions Recorded Confirmed Type Aspirin 325 mg PO DAILY tab 04/09/16 12/13/23 Rx Nitroglycerin Sl Tabs [Nitrostat] 0.4 mg SUBLINGUAL Q5M PRN #30 tab 04/09/16 12/13/23 Rx Losartan Potassium [Cozaar] 100 mg PO DAILY 11/26/18 12/13/23 History Metoprolol Tartrate [Lopressor] 50 mg PO BID 11/26/18 12/13/23 History Omeprazole [PriLOSEC] 40 mg PO DAILY 11/26/18 12/13/23 History Ascorbic Acid [Vitamin C] 500 mg PO DAILY 10/11/22 12/13/23 History Cholecalciferol [Vitamin D3 (25 25 mcg PO DAILY 10/11/22 12/13/23 History Mcg = 1000 Iu)] Citalopram Hydrobromide 40 mg PO DAILY 10/11/22 12/13/23 History [Citalopram HBr] Furosemide [Lasix] 40 mg PO DAILY 10/11/22 12/13/23 History Meloxicam [Mobic] 15 mg PO DAILY PRN 10/11/22 12/13/23 History Zinc Gluconate [Zinc] 50 mg PO DAILY 10/11/22 12/13/23 History Acetaminophen [Tylenol 8 Hour] 1,300 mg PO DAILY 12/13/23 12/13/23 History Atorvastatin Calcium [Lipitor] 80 mg PO HS 12/13/23 12/13/23 History Cephalexin [Keflex] 500 mg PO Q6HR 12/13/23 12/13/23 History Ezetimibe [Zetia] 10 mg PO DAILY 12/13/23 12/13/23 History predniSONE See Taper PO DAILY 12/13/23 12/13/23 History Allergies Allergy/AdvReac Type Severity Reaction Status Date / Time No Known Allergies Allergy Verified 12/13/23 06:53 Physical Examination - Vital Signs Vital Signs: Vital Signs Temp Pulse Pulse Resp BP BP Pulse Ox 12/13/23 11:04 98 F 56 L 18 124/80 97 12/13/23 08:40 91 L 12/13/23 08:00 97.6 F 55 L 18 136/68 96 12/13/23 06:00 56 L 17 106/56 92 L 12/13/23 05:00 66 11 L 102/67 93 L 12/13/23 04:00 57 L 19 109/64 93 L 12/13/23 03:35 97.8 F 60 17 109/64 97 12/13/23 03:00 56 L 21 98/63 93 L 12/13/23 02:45 71 21 99/56 94 L 12/13/23 02:30 65 17 106/61 94 L 12/13/23 02:14 97.8 F 63 18 106/61 96 12/13/23 02:00 59 L 22 97/54 95 12/13/23 01:45 61 18 100/63 96 12/13/23 01:15 63 21 97/55 93 L 12/13/23 01:00 60 20 100/62 94 L 12/13/23 00:45 61 18 90/57 93 L 12/13/23 00:37 97.7 F 67 21 98/48 93 L 12/13/23 00:20 76 16 99/61 93 L 12/13/23 00:00 97.8 F 68 21 101/53 95 12/12/23 23:40 74 15 90/58 96 12/12/23 23:29 97.5 F L 70 18 90/58 95 Intake and Output 12/12/23 12/13/23 12/13/23 22:59 06:59 14:59 Intake Total 240 Balance 240 Intake: Oral 240 Other: Voiding Method Toilet Urinal Weight 151.953 kg Patient is a middle aged male, very pleasant, in no acute distress. Patient is alert awake oriented to time place and person. Speech and language functions are normal. Patient can name and repeat very well. No aphasia or dysarthria. Attention, concentration and fund of knowledge is adequate. On cranial nerve examination, pupils are equal, round and reacting to light, visual pruitt are full on confrontation, with no neglect on double simultaneous stimulation. Extraocular muscles are intact with no nystagmus. Face is symmetric, tongue protrudes to the midline. Palatal elevation and sensation normal, hearing and shoulder shrug normal, facial sensation normal. On muscle strength testing, there is no pronator drift and the strength is normal in arms and legs distally and proximally. Deep tendon reflexes are symmetric to all over in the arms and legs and plantars downgoing. Sensory to touch is equal with no neglect on double simultaneous stimulation. Cerebellar function showed no ataxia for [id number] testing. No dysdiado chokinesia. No ataxia for [id number] testing on either side. Tone and bulk of muscles normal. Gait deferred.. On general examination, there is no carotid bruit or murmur, S1-S2 audible. Chest is clear on consultation. Abdomen is soft nontender. No organomegaly, bowel sounds present. Peripheral pulses are present. No peripheral edema. Results - Laboratory Findings CBC and BMP: 12/13/23 13:00 12/13/23 00:04 Abnormal Lab Findings: Abnormal Labs 12/13/23 12/13/23 12/13/23 00:04 00:04 00:04 WBC 12.3 H PT 9.6 L APTT 20.8 L Sodium 136 L Carbon Dioxide 18 L Glucose 113 H POC Glucose (mg/dL) Total Protein 6.2 L Albumin 3.3 L 12/13/23 00:05 WBC PT APTT Sodium Carbon Dioxide Glucose POC Glucose (mg/dL) 120 H Total Protein Albumin Assessment and Plan Assessment: * Recurrent TIA manifesting with slurred speech, left facial droop. Symptoms resolved in about 5 minutes. Patient had recurrence of symptoms in the ER, but lasted for about 1 to 2 minutes each. * Hypertension * Coronary artery disease * Ex tobacco use * Alcoholism. Patient was intoxicated with blood alcohol level 135 on arrival. * Vaper * Obesity Plan: Patient's symptoms have resolved. Current NIH stroke scale 0. No indication for MRI, as the symptoms were very brief, and the yield is very low. 2-D echo with bubble study to rule out PFO CTA head and neck showed: No acute findings in the arteries of the head and brain. No acute findings in the arteries of the neck. Fasting a.m. lipid panel Hemoglobin A1c Permissive hypertension for next 24-48 hours Patient was already taking aspirin 325 mg daily since his previous UT. Patient was given Plavix 75 mg early this morning at 2:57 AM. Patient will be given another dose now at 12:35 PM and then maintained every day. Continue aspirin 325 mg as well for now. Neuro checks every 1-2 hours. Telemetry monitoring rule out any arrhythmia Recommend abstinence from alcoholism, and vaping. Watch for DTs. Continue thiamine, folic acid. DVT prophylaxis: Patient ambulatory. Neurology will continue to follow. Thank you for the consult.
[2023-12-13] MEDS: HEPARIN SODIUM,PORCINE 5,000 UNIT/ML 1 ML VIAL SQ SCH (20:11)
[2023-12-13] MEDS: GABAPENTIN 300 MG CAP PO SCH (20:12)
[2023-12-13] MEDS: METOPROLOL TARTRATE 50 MG TAB PO SCH (20:12)
[2023-12-13] MEDS: SYMBICORT 80-4.5 MCG INHALER INHALATION SCH (20:49)
--- NOTE | 2023-12-14 07:19 | CA ---
Transthoracic Echo Report Name: Davon Sheppard Age: 58 Gender: M : 1965 Exam Date: 12/13/2023 13:55 Exam Location: [place] [facility] Ht (in): 75 Wt (lb): 335 Ordering Physician: Tommy Wade MD Attending/Referring Phys: Academic Counselor Reta Wan RDCS Procedure CPT: Indications: recurrent TIA Cardiac Hx: Technical Quality: Technically difficult study Contrast 1: Definity Total Dose (mL): 2 Contrast 2: Total Dose (mL): MEASUREMENTS (Male / Female) Normal Values 2D ECHO LV Diastolic Diameter PLAX 5.4 cm 4.2 - 5.9 / 3.9 - 5.3 cm LV Systolic Diameter PLAX 3.8 cm IVS Diastolic Thickness 1.1 cm 0.6 - 1.0 / 0.6 - 0.9 cm LVPW Diastolic Thickness 1.3 cm 0.6 - 1.0 / 0.6 - 0.9 cm LV Relative Wall Thickness 0.4 RV Internal Dim ED PLAX 3.9 cm LA Systolic Diameter LX 4.2 cm 3.0 - 4.0 / 2.7 - 3.8 cm LA Volume 83.3 cm??? 18 - 58 / 22 - 52 cm??? LA Volume Index 28.7 cm???/m??? 16 - 28 cm???/m??? M-MODE Aortic Root Diameter MM 3.5 cm AV Cusp Separation MM 2.0 cm DOPPLER AV Peak Velocity 156.9 cm/s AV Peak Gradient 9.8 mmHg MV Area PHT 2.3 cm??? Mitral E Point Velocity 58.4 cm/s Mitral A Point Velocity 66.7 cm/s Mitral E to A Ratio 0.9 MV Deceleration Time 332.0 ms FINDINGS Left Ventricle Left ventricular ejection fraction is estimated at 55-60 %. Left ventricular cavity size normal. Left ventricular wall thickness normal. No obvious regional wall motion abnormalities. Right Ventricle Severe right ventricular dilatation. Unable to estimate the right ventricular systolic pressure. Right Atrium Normal right atrial size. Negative agitated saline bubble study for right to left shunt. Left Atrium Mildly increased left atrial diameter. Severely increased left atrial volume. Mildly increased left atrial area. Mitral Valve Structurally normal mitral valve. No mitral stenosis, regurgitation or prolapse. Aortic Valve Trileaflet aortic valve. No aortic valve stenosis or regurgitation.aortic valve not well visualized. Tricuspid Valve Structurally normal tricuspid valve. No tricuspid stenosis, regurgitation or prolapse. Pulmonic Valve Pulmonic valve not well visualized. . No pulmonic regurgitation. Pericardium No pericardial effusion. Aorta Normal size aortic root and proximal ascending aorta. CONCLUSIONS Technically difficult study. Definity ECHO contrast used for improved visualization of the endocardial borders (inadequate visualization of two or more contiguous segments). Normal left ventricle size and systolic function No evidence of shunting by bubble study Very limited Doppler study Previewed by: Dr. Danyell Casillas MD (Electronically Signed) Final Date: 14 Dec 2023 07:18
[2023-12-14 08:49] LABS: Chol/HDL Ratio 4.28 Ratio
[2023-12-14] MEDS ORDERED: PANTOPRAZOLE 40 MG/10 ML VIAL IVP SCH (09:00)
[2023-12-14] MEDS ORDERED: FUROSEMIDE 40 MG TAB PO SCH (09:00)
[2023-12-14] MEDS ORDERED: THIAMINE 100 MG TAB PO SCH (09:00)
[2023-12-14] MEDS ORDERED: LOSARTAN 50 MG TAB PO SCH (09:00)
[2023-12-14] MEDS ORDERED: EZETIMIBE 10 MG TAB PO SCH (09:00)
[2023-12-14] MEDS: ATORVASTATIN 80 MG TAB PO SCH (09:12)
[2023-12-14] MEDS: ASPIRIN 325 MG TAB PO SCH (09:12)
[2023-12-14] MEDS: CHOLECALCIFEROL 25 MCG (1000 IU) TABLET PO SCH (09:12)
[2023-12-14 09:16] VITALS: TEMP 97.6
[2023-12-14] MEDS ORDERED: IPRATROPIUM-ALBUTEROL 3 ML NEB INHALATION PRN (11:10)
--- NOTE | 2023-12-14 11:17 | P.PN ---
Subjective This is a pleasant 58 years old male with past medical history of multiple medical problems, as below Patient presents because of 5 minutes long of neurological symptoms including left arm weakness, where he could not hold his phone as usual. He thinks also his left leg was weak to but he was sitting and not walking so he was not sure. His face also deviated to the right, he had slurred speech. All resolved within 5 minutes He has with mild to moderate headache. Tylenol did not help. Currently patient denies weakness or numbness in left arm or leg. No more slurred speech. No dizziness He denies chest pain abdominal pain vomiting diarrhea. No urinary complaints Patient he has chronic dyspnea. He was just recently treated by his PCP Dr. Kerry cota for his bronchitis with Keflex and prednisone taper. He finished his treatment about 3 days ago His research chemical engineer is Dr. Marrufo Patient states currently he is non-smoker, no alcohol, uses marijuana at times. He is hemodynamically stable, afebrile CBC is unremarkable except for mild leukocytosis 12.3, labs also unremarkable BMP, liver enzymes, INR, troponin Alcohol level was elevated 135 EKG showing sinus rhythm at [address]-T changes Chest x-ray showing emphysema with vascular congestion CT of the brain is negative showing sinusitis CT of the brain showing no abnormality of aneurysm or dissection or stenosis of the vascular region of the head and neck Patient currently on aspirin 325 mg Admitted with neurology team consult Objective - Vital Signs Vital signs: Vital Signs Temp 97.6 F 12/13/23 20:15 Pulse 67 12/14/23 09:10 Resp 16 12/14/23 09:10 BP 121/76 12/14/23 09:10 Pulse Ox 93 L 12/14/23 09:10 FiO2 Intake & Output 12/13/23 12/14/23 12/14/23 18:59 06:59 18:59 Intake Total 480 240 240 Balance 480 240 240 Intake: Oral 480 240 240 Other: Voiding Method Toilet Toilet Toilet Urinal Urinal Urinal # Voids 3 - Exam GENERAL: The patient is alert and oriented x3, not in any acute distress. Well developed, well nourished. HEENT: Pupils are round and equally reacting to light. EOMI. No scleral icterus. No conjunctival pallor. Normocephalic, atraumatic. No pharyngeal erythema. No thyromegaly. CARDIOVASCULAR: S1 and S2 present. No murmurs, rubs, or gallops. PULMONARY: Chest is clear to auscultation, no wheezing , no crackles. ABDOMEN: Soft, nontender, nondistended, normoactive bowel sounds. No palpable organomegaly. MUSCULOSKELETAL: No joint swelling or deformity. EXTREMITIES: No cyanosis, clubbing, or pedal edema. NEUROLOGICAL: Gross neurological examination did not reveal any focal deficits. SKIN: No rashes. no petechiae. - Labs CBC & Chem 7: 12/13/23 13:00 12/13/23 00:04 Labs: Abnormal Lab Results - Last 24 Hours (Table) 12/13/23 Range/Units 13:00 Triglycerides 161.00 H (0.00-149.00) mg/dL HDL Cholesterol 38.80 L (40.00-60.00) mg/dL Assessment and Plan Assessment: Transient left side hemiparesis, more in the arm than leg associated with left facial droop and right facial deviation, currently resolved concerning for TIA versus stroke. COPD with mild exacerbation. Coronary artery disease s/p stent Hypertension Hyperlipidemia History of GERD History of osteoarthritis Obesity with BMI of 41.9 Plan: Continue with aspirin. Plavix 1 is added in the emergency room Neurology consult Continue with Lipitor B12 and folate moderately low and given he is on glucose Eliquis risk factor for more deficiency will add short course of replacement Start Symbicort and DuoNebs. No need for systemic steroids. Started doxycycline for short course Continue with oral Lasix. proBNP is low Labs and medication were reviewed.. Continue same treatment. Continue with symptomatic treatment. Resume home medication. Monitor labs and vitals. DVT and GI prophylaxis. Further recommendations as per clinical course of the patient DVT prophylaxis: Subcutaneous heparin GI Prophylaxis: Pepcid PT/OT: Pending Prognosis is guarded Possible discharge soon once cleared by neurology service
[2023-12-14] MEDS: DOXYCYCLINE 100 MG CAP PO SCH (11:43)
[2023-12-14] MEDS: FOLIC ACID 1 MG TAB PO SCH (11:43)
[2023-12-14] MEDS: CYANOCOBALAMIN 500 MCG TAB PO SCH (11:43)
[2023-12-14] MEDS: chlordiazePOXIDE 25 MG CAP PO STA (11:43)
[2023-12-14 12:10] VITALS: BP 118/74; PULSE 74; RESP 18
[2023-12-14] MEDS: IPRATROPIUM-ALBUTEROL 3 ML NEB INHALATION STA (12:10)
--- NOTE | 2023-12-14 12:29 | P.PN ---
Subjective Progress Note Date: 12/14/23 Patient is doing well. No further strokes or TIA. Objective - Vital Signs Vital signs: Vital Signs Temp 97.6 F 12/13/23 20:15 Pulse 74 12/14/23 11:44 Resp 18 12/14/23 11:44 BP 118/74 12/14/23 11:44 Pulse Ox 96 12/14/23 11:44 FiO2 Intake & Output 12/13/23 12/14/23 12/14/23 18:59 06:59 18:59 Intake Total 480 240 240 Balance 480 240 240 Intake: Oral 480 240 240 Other: Voiding Method Toilet Toilet Toilet Urinal Urinal Urinal # Voids 3 - Exam Mental status, speech and language functions normal. Cranial nerves normal. No ataxia. Sensations normal. No pronator drift. - Labs CBC & Chem 7: 12/13/23 13:00 12/13/23 00:04 Labs: Abnormal Lab Results - Last 24 Hours (Table) 12/13/23 Range/Units 13:00 Triglycerides 161.00 H (0.00-149.00) mg/dL HDL Cholesterol 38.80 L (40.00-60.00) mg/dL Assessment and Plan Assessment: * Recurrent TIA manifesting with slurred speech, left facial droop. Symptoms resolved in about 5 minutes. Patient had recurrence of symptoms in the ER, but lasted for about 1 to 2 minutes each. * Hypertension * Coronary artery disease * Ex tobacco use * Alcoholism. Patient was intoxicated with blood alcohol level 135 on arrival. * Vaper * Obesity Plan: Patient's symptoms have resolved. Current NIH stroke scale 0. No indication for MRI, as the symptoms were very brief, and the yield is very low. 2-D echo revealed Definity echo contrast used for improved visualization of the endocardial border. Normal left ventricular size and systolic function. LVEF 55 to 60%. No obvious regional wall motion abnormalities. Mildly increased left atrial diameter. Severely increased left atrial volume. Negative agitated saline bubble study for [id number] shunt. Suggest 30-day event monitor to rule out paroxysmal atrial fibrillation. CTA head and neck showed: No acute findings in the arteries of the head and brain. No acute findings in the arteries of the neck. Fasting a.m. lipid panel cholesterol 166, LDL 95, HDL 38, triglycerides 161. Patient takes simvastatin 80 mg daily. He mentions that he used to take Lipitor in the past but produced muscle aches. Zocor works better. Continue Zocor. Hemoglobin A1c 5.9 B12 366, folate 5.10. Continue folate 1 mg daily and start B12 1000 mcg orally daily. Optimize control of blood pressure to normotensive level. Most recent blood pressure 118/74. Patient was already taking aspirin 325 mg daily since his previous LA. Patient was given Plavix 75 mg early this morning at 2:57 AM. Patient will be given another dose now at 12:35 PM and then maintained every day. Continue dual antiplatelet medication aspirin 81 mg and Plavix 75 mg for 21 days, then stop aspirin and continue Plavix indefinitely. Neuro checks every 1-2 hours. Telemetry monitoring rule out any arrhythmia Recommend abstinence from alcoholism, and vaping. Watch for DTs. Continue thiamine, folic acid. Neurologically clear for discharge after event monitor hookup.
[2023-12-15] MEDS ORDERED: PANTOPRAZOLE 40 MG TABLET PO SCH (07:30)
[2023-12-15] MEDS ORDERED: ASPIRIN 81 MG PO SCH (09:00)
== END 2023-12-14 15:25 | disposition home or self-care (01) ==
LOC: EC 23:27 → 3SCARD 12-13 00:30
PROVIDERS: ADMIT Hospitalist; ATTEND Hospitalist
DX: G81.94 Hemiplegia, unspecified affecting left nondominant side (principal); R29.810 Facial weakness; R47.81 Slurred speech; J44.1 Chronic obstructive pulmonary disease with (acute) exacerbation; F10.20 Alcohol dependence, uncomplicated; I25.10 Atherosclerotic heart disease of native coronary artery without angina pectoris; I10 Essential (primary) hypertension; E78.5 Hyperlipidemia, unspecified; K21.9 Gastro-esophageal reflux disease without esophagitis; I25.2 Old myocardial infarction; M19.90 Unspecified osteoarthritis, unspecified site; F17.290 Nicotine dependence, other tobacco product, uncomplicated; E66.9 Obesity, unspecified; Z68.41 Body mass index [BMI] 40.0-44.9, adult; Z95.5 Presence of coronary angioplasty implant and graft; Y90.6 Blood alcohol level of 120-199 mg/100 ml; Z79.1 Long term (current) use of non-steroidal anti-inflammatories (NSAID); Z79.82 Long term (current) use of aspirin; Z79.899 Other long term (current) drug therapy
CPT/HCPCS: 36415; 70450; 70496; 70498; 71045; 80053; 80061; 80320; 82550; 82607; 82746; 83036; 83880; 84145; 84443; 84484; 85025; 85027; 85610; 85730; 93005; 93270; 93306; 94640; 96361; 96372; 96374; 96376; 99285